=== PATIENT | male | born 1975 | race Two or more races ===

== ENCOUNTER 2021-02-02 09:00 | Emergency (ER) | payer SELFPAY ==
[2021-02-02] MEDS ORDERED: Sodium Chloride 0.9% 10 ML Syringe FLUSH PRN (09:31)
--- NOTE | 2021-02-02 09:47 | EDM.PDOC ---
ED HPI GENERAL MEDICAL PROBLEM - General Chief Complaint: Chest Pain Stated Complaint: CHEST PAINS Time Seen by Provider: 02/02/21 09:18 Source of Information: Reports: Patient History Limitations: Reports: No Limitations - History of Present Illness INITIAL COMMENTS - FREE TEXT/NARRATIVE: 45-year-old male presents the emergency department with complaints of right sided chest wall pain. He states that this morning he woke up and went out to have a cigarette and while he was smoking a cigarette he developed stabbing right-sided chest pain. He states this has been fairly constant since it started and it has started to radiate over to the left side of his chest. He denies any cardiac history or significant medical history. He does not take any prescription medications nor does he have a primary care physician. He states he does smoke about a pack and a half a day for the past 30 years. At the onset of the right-sided chest pain he denies any diaphoresis, shortness of breath, lightheadedness, nausea, vomiting or abdominal pain. He denies having any recent fever or chills. Bilateral Chest Pain Score (Numeric/FACES): 3 - Related Data Allergies Allergy/AdvReac Type Severity Reaction Status Date / Time No Known Allergies Allergy Verified 02/02/21 09:15 Home Meds: Home Meds . [No Known Home Meds] 02/02/21 [History] Past Medical History Respiratory History: Reports: Asthma Gastrointestinal History: Reports: Inflammatory Bowel Disease Musculoskeletal History: Reports: Fracture Other Musculoskeletal History: HX foot fractures , hand fractures - Past Surgical History GI Surgical History: Reports: Colonoscopy Social & Family History - Tobacco Use Tobacco Use Status *Q: Former Tobacco User Years of Tobacco use: 30 Packs/Tins Daily: 1.5 Used Tobacco, but Quit: No - Caffeine Use Caffeine Use: Reports: Soda - Recreational Drug Use Recreational Drug Use: Yes Drug Use in Last 12 Months: Yes Recreational Drug Type: Reports: Marijuana/Hashish Recreational Drug Use Frequency: Daily ED ROS GENERAL - Review of Systems Review Of Systems: Comprehensive ROS is negative, except as noted in HPI. ED EXAM, GENERAL - Physical Exam Exam: See Below Exam Limited By: No Limitations General Appearance: Alert, WD/WN, No Apparent Distress Ears: Normal External Exam, Hearing Grossly Normal Nose: Normal Inspection Throat/Mouth: Normal Inspection, Normal Lips, Normal Voice, No Airway Compromise Head: Atraumatic Neck: Normal Inspection, Supple Respiratory/Chest: No Respiratory Distress, No Accessory Muscle Use, Respiratory Distress (Fine expiratory wheeze noted to the right upper lobe). No: Lungs Clear, Normal Breath Sounds, Chest Non-Tender (Right chest wall tenderness with palpation) Cardiovascular: Normal Peripheral Pulses, Regular Rate, Rhythm, No Edema, No Murmur Peripheral Pulses: 2+: Radial (L), Radial (R) GI/Abdominal: Normal Bowel Sounds, Soft, Non-Tender, No Distention (Male) Exam: Deferred Rectal (Males) Exam: Deferred Back Exam: Normal Inspection Extremities: Normal Inspection, Normal Range of Motion, Non-Tender, No Pedal Edema, Normal Capillary Refill Neurological: Alert, Oriented, Normal Cognition, Normal Reflexes Psychiatric: Normal Affect, Normal Mood Skin Exam: Warm, Dry, Intact, Normal Color, No Rash Lymphatic: No Adenopathy #1 Interpretation EKG Date: 02/02/21 Time: 09:10 Rhythm: NSR Rate (Beats/Min): 67 Dania: Normal P-Wave: Present QRS: Normal ST-T: Normal QT: Normal Comparison: NA - No Prior EKG EKG Interpretation Comments: Per Dr. Forman interpretation: Sinus rhythm at 67 bpm; RSR prime V1 and [id number] variantconsider old anteroseptal DC Course - Vital Signs Text/Narrative:: Patient presents with right-sided chest pain that is now radiating to the left. Denies any cardiac history. Significant smoking history. I have ordered labs to include an EKG, CBC, CMP, C-reactive protein, troponin and a D-dimer. We will also obtain portable chest x-ray. Last Recorded V/S: Last Vital Signs Temp 96.4 F L 02/02/21 09:11 Pulse 66 02/02/21 09:11 Resp 16 02/02/21 09:11 BP 113/76 02/02/21 09:11 Pulse Ox 100 02/02/21 09:11 - Orders/Labs/Meds Orders: Active Orders 24 hr Category Date Time Status EKG Documentation Completion [RC] STAT Care 02/02/21 09:31 Active Sodium Chloride 0.9% [Saline Flush] Med 02/02/21 09:31 Active 10 ml FLUSH ASDIRECTED PRN Saline Lock Insert [OM.PC] Stat Oth 02/02/21 09:31 Ordered Medication Orders Sodium Chloride (Sodium Chloride 0.9% 10 Ml Syringe) 10 ml FLUSH ASDIRECTED PRN PRN Reason: Keep Vein Open Last Admin: 02/02/21 09:40 Dose: 10 ml Documented by: KATHY Labs: Laboratory Tests 02/02/21 02/02/21 02/02/21 Range/Units 10:00 10:00 10:00 WBC 7.11 (4.23-9.07) K/mm3 RBC 4.75 (4.63-6.08) M/mm3 Hgb 14.8 (13.7-17.5) gm/dl Hct 45.1 (40.1-51.0) % MCV 94.9 H (79.0-92.2) fl MCH 31.2 (25.7-32.2) pg MCHC 32.8 (32.2-35.5) g/dl RDW Std Deviation 44.9 H (35.1-43.9) fL Plt Count 208 (163-337) K/mm3 MPV 9.5 (9.4-12.3) fl Neut % (Auto) 42.1 (34.0-67.9) % Lymph % (Auto) 41.5 (21.8-53.1) % [place] % (Auto) 9.4 (5.3-12.2) % Eos % (Auto) 6.5 (0.8-7.0) Baso % (Auto) 0.4 (0.1-1.2) % Neut # (Auto) 2.99 (1.78-5.38) K/mm3 Lymph # (Auto) 2.95 (1.32-3.57) K/mm3 [place] # (Auto) 0.67 (0.30-0.82) K/mm3 Eos # (Auto) 0.46 (0.04-0.54) K/mm3 Baso # (Auto) 0.03 (0.01-0.08) K/mm3 D-Dimer, Quantitative 0.24 (0.19-0.50) mg/L Sodium 141 (136-145) mEq/L Potassium 4.2 (3.5-5.1) mEq/L Chloride 104 (98-107) mEq/L Carbon Dioxide 30 (21-32) mEq/L Anion Gap 11.2 (5-15) BUN 11 (7-18) mg/dL Creatinine 1.0 (0.7-1.3) mg/dL Est Cr Clr Drug Dosing TNP Estimated GFR (MDRD) > 60 (>60) mL/min BUN/Creatinine Ratio 11.0 L (14-18) Glucose 87 (70-99) mg/dL Calcium 9.1 (8.5-10.1) mg/dL Magnesium 2.0 (1.8-2.4) mg/dL Total Bilirubin 0.2 (0.2-1.0) mg/dL AST 20 (15-37) U/L ALT 27 (16-63) U/L Alkaline Phosphatase 75 (46-116) U/L Troponin I < 0.017 (0.00-0.056) ng/mL C-Reactive Protein 0.2 (<1.0) mg/dL Total Protein 7.3 (6.4-8.2) g/dl Albumin 3.6 (3.4-5.0) g/dl Globulin 3.7 gm/dL Albumin/Globulin Ratio 1.0 (1-2) Meds: Medications Generic Name Dose Route Start Last Admin Trade Name Freq PRN Reason Stop Dose Admin Sodium Chloride 10 ml 02/02/21 09:31 02/02/21 09:40 Sodium Chloride 0.9% 10 Ml Syringe FLUSH 10 ml ASDIRECTED PRN Administration Keep Vein Open - Re-Assessments/Exams Free Text/Narrative Re-Assessment/Exam: 02/02/21 10:15 Radiologist impression frontal view of the chest using portable technique: 1. Nothing acute is seen on portable chest x-ray. 02/02/21 11:07 Hematology is essentially unremarkable, Coagulation shows a D-dimer of 0.24 Chemistry is unremarkable and shows a troponin less than 0.017, C-reactive protein 0.2 Patient's chest pain is likely musculoskeletal in origin. He will be discharged home with recommendations that he take NSAIDs for the discomfort. Departure - Departure Time of Disposition: 11:08 Disposition: Home, Self-Care 01 Condition: Good Clinical Impression: Atypical chest pain Instructions: Chest Wall Pain, [id number] Referrals: PCP,None [Primary Care Provider] - Forms: ED Department Discharge Additional Instructions: You were seen in the emergency department today with complaints of right-sided chest pain that radiated to the left. The cardiac work-up was completed which included an EKG, chest x-ray and lab work. All of this was unremarkable. You did not have a heart attack. Your pain is likely musculoskeletal irritation in origin. Recommend that you take ibuprofen 600 mg every 6-8 hours for the next 48 hours or Aleve 2 tabs every 12 hours for the next 48 hours. You should likely notice a decrease in the chest discomfort at that time. Should your condition worsen or change, do not hesitate returning to the emergency department. Sepsis Event Note (ED) - Evaluation Sepsis Screening Result: No Definite Risk - Focused Exam Vital Signs: Vital Signs Temp Pulse Resp BP Pulse Ox 02/02/21 09:11 96.4 F L 66 16 113/76 100 - My Orders Last 24 Hours: My Active Orders 02/02/21 09:31 EKG Documentation Completion [RC] STAT Sodium Chloride 0.9% [Saline Flush] 10 ml FLUSH ASDIRECTED PRN Saline Lock Insert [OM.PC] Stat - Assessment/Plan Last 24 Hours: My Active Orders 02/02/21 09:31 EKG Documentation Completion [RC] STAT Sodium Chloride 0.9% [Saline Flush] 10 ml FLUSH ASDIRECTED PRN Saline Lock Insert [OM.PC] Stat
--- NOTE | 2021-02-02 10:01 | CR ---
Chest: Frontal view of the chest was obtained utilizing portable technique. Comparison: No prior chest imaging is available. Heart size and mediastinum are within normal limits. Lungs are clear with no acute parenchymal change. No acute osseous abnormality is appreciated. Impression: 1. Nothing acute is seen on portable chest x-ray. Diagnostic code #1
== END 2021-02-02 11:32 | disposition home or self-care (01) ==
LOC: JD.ED 09:00
DX: R07.89 Other chest pain (principal); Z72.0 Tobacco use
CPT/HCPCS: 36415; 71045; 71045-26; 80053; 83735; 84484; 85025; 85379; 86140; 93005; 93010; 99284; 99285-25